=== PATIENT | female | born 1955 | race Caucasian/White ===

== ENCOUNTER 2021-02-16 10:27 | Observation (INO) | payer OTHER ==
[~2021-02-16] VITALS: Ht 162.6 cm; Wt 105.7 kg
[~2021-02-16 10:27] MED LIST: DOXYCYCLINE 10100 MG PO; NOHOMEMEDICATIONS; NORCO 5-325 TA1 EACH PO
[2021-02-16 10:38] VITALS: BP 159/59
[2021-02-16 11:02] LABS: ABSOLUTE EOSINOPHILS 0.1 thou/uL (0.0-0.7); ABSOLUTE LYMPHOCYTES 1.6 thou/uL (0.8-5.3); ABSOLUTE MONOCYTES 0.4 thou/uL (0.0-1.2); ABSOLUTE NEUTROPHILS 3.6 thou/uL (1.6-8.1); BASOPHILS 0.8 %; EOSINOPHILS 1.7 %; HEMATOCRIT 40.6 % (37.0-47.0); HEMOGLOBIN 13.6 gm/dL (12.0-15.0); LYMPHOCYTES 27.6 %; MCH 26.7 pg (26.0-34.0); MCHC 33.6 g/dL (28.0-37.0); MCV 79.6 fL (80.0-100.0); MONOCYTES 7.8 %; NUCLEATED RBCS 0 /100WBC; PLATELET COUNT* 147 thou/uL (150-400); POLYS 62.1 %; RDW-CV 14.3 % (10.5-14.5); WBC 5.7 thou/uL (4.0-11.0)
[2021-02-16 11:11] LABS: CALCIUM 8.8 mg/dL (8.5-10.1); CREATININE 0.8 mg/dL (0.6-1.3); POTASSIUM 4.1 mmol/L (3.5-5.1)
[2021-02-16 11:22] LABS: ALBUMIN 3.9 g/dL (3.4-5.0); MAGNESIUM 1.9 mg/dL (1.8-2.4); TOTAL BILIRUBIN 0.5 mg/dL (<0.1-1.0); TOTAL PROTEIN 7.4 g/dL (6.4-8.2)
[2021-02-16 14:48] VITALS: BP 112/55
--- NOTE | 2021-02-16 18:16 | NUR ---
PT A&OX4 VSS. PT CONTINENT OF B/B. ROOM AIR SATS >95%. UP AD BRITT GAIT STEADY. PT TO HAVE STRESS TEST TOMORROW. SINUS ON MONITOR. PT RESTS IN BED WITH CLL LIGHT IN REACH. WILL CONTINUE TO MONITOR
[2021-02-16 19:30] VITALS: BP 105/53
[2021-02-17 01:00] VITALS: BP 110/47
[2021-02-17 04:00] VITALS: BP 131/67
[2021-02-17 05:25] LABS: HEMOGLOBIN 13.4 gm/dL (12.0-15.0); MCHC 33.5 g/dL (28.0-37.0); MCV 80.6 fL (80.0-100.0); MPV 8.5 fl. (7.2-11.1); RBC 4.96 mil/uL (4.20-5.00); RDW-CV 14.7 % (10.5-14.5); WBC 5.6 thou/uL (4.0-11.0)
[2021-02-17 05:48] LABS: ALBUMIN 3.4 g/dL (3.4-5.0); ALKALINE PHOSPHATASE 67 U/L (46-116); ANION GAP 8 mmol/L (7-16); BUN 11 mg/dL (7-18); CALCIUM 8.3 mg/dL (8.5-10.1); CHLORIDE 107 mmol/L (98-107); CHOLESTEROL 200 mg/dL (<200); CO2 26 mmol/L (21-32); CREATININE 0.7 mg/dL (0.6-1.3); GLUCOSE 113 mg/dL (70-99); HDL CHOLESTEROL 55 mg/dL (>40); LDL CHOLESTEROL 117 mg/dL (<100); MAGNESIUM 1.9 mg/dL (1.8-2.4); POTASSIUM 3.9 mmol/L (3.5-5.1); SGOT 20 U/L (15-37); SGPT 26 U/L (30-65); SODIUM 141 mmol/L (136-145); TC:HDL 3.6 Ratio (Not establshd); TOTAL BILIRUBIN 0.3 mg/dL (<0.1-1.0); TOTAL PROTEIN 6.7 g/dL (6.4-8.2); TRIGLYCERIDE 140 mg/dL (<150); TROPONIN-I LEVEL <0.06 ng/mL (<0.06); VLDL 28 mg/dL (<40)
[2021-02-17 05:49] LABS: SERUM ASSESSMENT Clear
[2021-02-17 08:00] VITALS: BP 126/61
--- NOTE | 2021-02-17 08:10 | 2DMMODE ---
[place] [address] 2 D/M-MODE ECHOCARDIOGRAM Name: CASSI DEXTER Room: [address] [place]#: [id number] Admission: 02/16/21 Attend Phys: Flaquita Carlson, Discharge: Date of : 57 Date of Service: 02/17/21 0810 Report #: [id number] THIS REPORT FOR: cc: Devora Tracey Maggie M. DO Blick, David R. MD [facility] ~ APPROVED REPORT Study performed: 02/16/2021 14:19:45 EXAM: Comprehensive 2D, Doppler, and color-flow Echocardiogram Patient Location: In-Patient Room #: er Status: routine BSA: 2.09 HR: 64 bpm BP: 118/56 mmHg Rhythm: NSR Other Information Study Quality: Adequate Indications Chest Pain 2D Dimensions IVSd: 9.47 (7-11mm) LVOT Diam: 19.80 (18-24mm) LVDd: 43.46 mm PWd: 9.22 (7-11mm) Ascending Ao: 35.46 (22-36mm) LVDs: 24.54 (25-40mm) Aortic Root: 30.37 mm Volumes Left Atrial Volume (Systole) LA ESV Index: 22.70 mL/m2 Aortic Valve AoV Peak Claudy.: 1.30 m/s AO Peak Gr.: 6.71 mmHg LVOT Max P.22 mmHg AO Mean Gr.: 3.46 mmHg LVOT Mean P.03 mmHg LVOT Max V: 1.03 m/s AO V2 VTI: 25.22 cm LVOT Mean V: 0.65 m/s MARIA INES (VTI): 3.12 cm2 LVOT V1 VTI: 25.53 [place] [address] 2 D/M-MODE ECHOCARDIOGRAM Name: CASSI DEXTER Room: [address]R.#: [id number] Admission: 02/16/21 Attend Phys: Flaquita Carlson, Discharge: Date of : 57 Date of Service: 02/17/21 0810 Report #: [id number] Mitral Valve E/A Ratio: 1.16 MV Decel. Time: 215.48 ms MV E Max Claudy.: 0.67 m/s MV PHT: 62.49 ms MVA (PHT): 3.52 cm2 TDI E/Lateral E': 4.79 E/Medial E': 9.57 Medial E' Claudy.: 0.07 m/s Lateral E' Claudy.: 0.14 m/s Pulmonary Valve PV Peak Claudy.: 0.94 m/s PV Peak Gr.: 3.52 mmHg Tricuspid Valve RAP Estimate: 5.00 mmHg TR Peak Gr.: 23.19 mmHg RVSP: 28.00 mmHg PA Pressure: 28.00 mmHg Left Ventricle The left ventricle is normal size. There is normal LV segmental wall motion. There is normal left ventricular wall thickness. Left ventricular systolic function is normal. The left ventricular ejection fraction is within the normal range. LVEF is 55-60%. The left ventricular diastolic function is normal. Right Ventricle The right ventricle is normal size. The right ventricular systolic function is normal. Atria The left atrium size is normal. The right atrium size is normal. Aortic Valve The Aortic valve is sclerotic. No aortic regurgitation is present. There is no aortic valvular stenosis. Mitral Valve The mitral valve is normal in structure. There is no mitral valve regurgitation noted. No evidence of mitral valve stenosis. Tricuspid Valve The tricuspid valve is normal in structure. Trace tricuspid regurgitation. [place] [address] 2 D/M-MODE ECHOCARDIOGRAM Name: CASSI DEXTER Room: [address]#: [id number] Admission: 02/16/21 Attend Phys: Flaquita Carlson, Discharge: Date of : 57 Date of Service: 02/17/21 0810 Report #: [id number] Pulmonic Valve Pulmonic valve is not well visualized. There is no pulmonic valvular regurgitation. Great Vessels The aortic root is normal in size. IVC is normal in size and collapses >50% with inspiration. Pericardium There is no pericardial effusion. <Conclusion> Left ventricular systolic function is normal. The left ventricular ejection fraction is within the normal range. The Aortic valve is sclerotic. <ELECTRONICALLY SIGNED> By: Flex Sotomayor MD, [facility] 02/17/21809 9 9 Flex Sotomayor MD, FACC /INF
[2021-02-17] MEDS ORDERED: ASPIRIN EC81 M1 PO (08:44)
--- NOTE | 2021-02-17 08:57 | EKG ---
[place] [address] ELECTROCARDIOGRAM REPORT Name: CASSI DEXTER [address]#: [id number] Admission: 02/16/21 Attend Phys: Flaquita Carlson, Discharge: Date of : 57 Date of Service: 02/16/21 1041 Report #: [id number] THIS REPORT FOR: //name// [facility] ED Test Date: 2021-02-16 Test Time: 10:41:39 Pat Name: CASSI DEXTER Department: Room: [facility] Gender: F Marketing Operations Analyst: CD : 1955 Requested By: Jorge Belcher Order Number: [id number] MD: Tanvir Franklin Measurements Intervals [place] Rate: 70 P: 30 CO: 177 QRS: -17 QRSD: 102 T: 19 QT: 390 QTc: 421 Interpretive Statements Sinus rhythm Low voltage, precordial leads No previous ECG available for comparison Electronically Signed On 02-17-2021 8:57:09 CDT by Tanvir Franklin [email or web address] <ELECTRONICALLY SIGNED> By: Tanvir Franklin MD, [facility] 02/17/21 0857 1041 1041 Tanvir Franklin MD, [facility] /EPI
--- NOTE | 2021-02-17 10:31 | NUR ---
ASSUMED CARE OF PT AT 0730. PT LYING IN BED. A&0X4, DENIES ANY CHEST PAIN OR SHORTNESS OF BREATH. PT NPO FOR STRESS ECHO TODAY. CARDIOLOGY CONSULT IN PLACE. TRACING SR ON THE FRINGE WEAVER. ON RA SAT UPPER 90'S. PT UP BRITT IN ROOM. PT GOAL FOR TODAY IS COMPLETE STRESS ECHO AND DISCHARGE PLANNING TO HOME. AM ASSESSMENT CHARTED. MEDICATIONS PER MAR. PT REPOSITIONS SELF. HOURLY ROUNDING OBSERVED. BED IN LOW POSITION. CALL LIGHT WITHIN REACH. WILL CONTINUE PLAN OF CARE.
[2021-02-17 11:17] VITALS: BP 126/61
--- NOTE | 2021-02-17 11:30 | CON ---
[address] [address] CONSULTATION Name: CASSI DEXTER Room: [address] [place]#: [id number] Admission: 02/16/21 Attend Phys: Flaquita Carlson MD Discharge: Date of : 57 Report #: [id number] THIS REPORT FOR: cc: Devora Tracey Maggie M. DO Blick, David R. MD [facility] ~ DOC #: [id number] cc: DO Flex Schwarz MD [facility] DATE OF CONSULTATION: 02/16/2021 HISTORY OF PRESENT ILLNESS: The patient is a 65-year-old single white female who I was asked to see in the Emergency Room today after she complained of her ankles have been swollen. The patient has no previous history of heart disease. For several weeks now, she has noticed intermittent swelling of both feet that occasionally will go down. She has never been on diuretics before. She also notes when she exerts herself, she developed some tightness of her chest that goes into her back. It is not related to food or coughing. She has had no blood in her stool. Denied trauma to her chest. She also notes when she exerts herself, she will become short of breath. However, she denies any fever or cough. She went to see her primary care physician today was sent to the Emergency Room for further evaluation and treatment. PAST MEDICAL HISTORY: Significant for oral surgery. She has no history of hypertension, diabetes, hyperlipidemia. MEDICATIONS: She is on no medication. ALLERGIES: TO PENICILLIN. FAMILY HISTORY: Grandfather had a pacemaker. SOCIAL HISTORY: She is , lives by herself in a farm outside [place], [place]. She is retired from the [employer]. No smoking. Rarely drinks alcohol. REVIEW OF SYSTEMS: She is overweight being 5 feet 4 inches, 230 pounds. No history of stroke. She denies snoring at night. No asthma. No liver disease. No kidney disease. She has had hemorrhoids in the past. No GI bleeding. No chronic skin condition. No psychiatric illness. PHYSICAL EXAMINATION: GENERAL: Middle-aged female, appeared in no distress. VITAL SIGNS: She had a blood pressure 120/70, pulse 70. She is afebrile. HEENT: She was anicteric. Conjunctivae pink[place] [address] CONSULTATION Name: CASSI DEXTER [address] [id number] Admission: 02/16/21 Attend Phys: Flaquita Carlson MD Discharge: Date of : 57 Report #: [id number] NECK: Veins not distended. No carotid bruits. Supple. CHEST: Clear to auscultation. HEART: Regular rate and rhythm without murmur. ABDOMEN: Soft. EXTREMITIES: Had no pitting edema. Dorsalis pedis pulse, 2+ bilaterally. SKIN: Cool and dry. NEUROLOGIC: Nonfocal. LYMPHATIC: No adenopathy. MUSCULOSKELETAL: No effusion. PSYCHIATRIC: Mood is appropriate. LABORATORY DATA: Her workup in the Emergency Room, she actually had a chest x-ray this morning that showed a sinus rhythm with no significant ST or T-wave change. The patient had a portable chest x-ray in the Emergency Room today that showed normal heart size, clear lung rutledge. Her sodium is 139, creatinine 0.8. Liver function studies were normal. Troponins were all less than 0.06. TSH 2.2. White blood cell count 5.7, hematocrit 40.6. Her COVID antigen stat test was negative. IMPRESSION AND RECOMMENDATIONS: 1. Chest pressure. Atypical for angina. Recommend stress echocardiogram. 2. Lower extremity edema. Suspect venous insufficiency. Recommend sodium restriction, elevation of feet and support hose. 3. Dyspnea on exertion, suspect secondary exercise tolerance. 4. Obesity. Recommend diet and exercise. Flex Sotomayor MD [facility] MESSI/[facility] <ELECTRONICALLY SIGNED> By: Flex Sotomayor MD, [facility] 02/17/21 1130 1353 0025Daviroscoe Sotomayor MD, [facility] /nt
[2021-02-17 12:01] VITALS: BP 124/63
--- NOTE | 2021-02-17 14:44 | EXE ---
[place] [address] STRESS ECHOCARDIOGRAM Name: CASSI DEXTER Room: [address] [place]#: [id number] Admission: 02/16/21 Attend Phys: Flaquita Carlson, Discharge: Date of : 57 Date of Service: 02/17/21 1444 Report #: [id number] THIS REPORT FOR: cc: Devora Tracey Maggie M. DO Liston, Michael J. MD [facility] ~ APPROVED REPORT Study performed: 02/17/2021 13:04:46 Exam: Stress Echocardiogram Indication: Chest pain Patient Location: In-Patient Stress Nurse: Isabel Bar RN Room #: 210 Supervising Physician: Tanvir Franklin MD Ht: 5 ft 4 in HR: 76 bpm BP: 115/79 mmHg Medical History Cardiac Risk Factors: Age Procedure The patient underwent an Exercise Stress Test using the Fernandez Protocol. Blood pressure, heart rate, and EKG were monitored. An Echocardiogram was performed by energy and conservation technician in four stages in quad fashion. At peak stress, four selected images were obtained and placed side by side with resting images for comparison. Echo Enhancing Agent Indication: Endocardial border delineation Agent(s) / Amount(s) Used: Optison 4 cc Stress Test Details Stress Test: Exercise stress testing was performed using a Fernandez protocol. HR Resting HR: 76 bpm Max Heart Rate (APMHR): 156 bpm Max HR Achieved: 150 bpm Target HR (85% APMHR): 132 bpm % of APMHR: 96 Recovery HR: 88 bpm HR response to stress: [place] [address] STRESS ECHOCARDIOGRAM Name: GUERITACASSI Ravinder Room: [address]#: [id number] Admission: 02/16/21 Attend Phys: Flaquita Carlson, Discharge: Date of : 57 Date of Service: 02/17/21 1444 Report #: [id number] Resting BP: 115/79 mmHg Max BP: 197/59 mmHg Recovery BP: 127/58 mmHg BP response to stress: Normal blood pressure response to stress. ECG Resting ECG: Sinus Rhythm Stress ECG: Sinus Tachycardia ST Change: None Arrhythmia: None Recovery ECG: Sinus Rhythm Recovery ST Change: None Recovery Arrhythmia: None Clinical Reason for Termination: Completed protocol Exercise duration: 6 min sec Highest Stage Achieved: Stage 2: 2.5 mph at 12% grade. Exercise capacity: 7.05 METs The patient tolerated standard Fernandez protocol exercise without significant cardiac symptoms. Exercise was stopped due to attainment of target heart rate. Stress ECG Conclusion The baseline twelve-lead EKG shows sinus rhythm without significant ST segment or T wave abnormality. EKGs obtained during and post exercise show sinus rhythm and sinus tachycardia with no significant ST segment or T wave changes when compared to baseline. There were no stress-induced arrhythmias. Pre-Stress Echo The resting Echocardiogram showed normal left ventricular contractility with an estimated Ejection Fraction of about 55-60%. The resting echocardiogram demonstrated normal wall motion in all wall segments. Post-Stress Echo The stress Echocardiogram showed normal left ventricular contractility with an estimated Ejection Fraction of about >70%. Compared to rest, there were no stress-induced wall motion abnormalities. Clinical No clinical [place] [address] STRESS ECHOCARDIOGRAM Name: CASSI DEXTER Room: [address]#: [id number] Admission: 02/16/21 Attend Phys: Flaquita Carlson, Discharge: Date of : 57 Date of Service: 02/17/21 1444 Report #: [id number] Conclusion Clinical Response: Non-ischemic Exercise Capacity: Average Stress ECG Response: Non-ischemic Stress Echo Images: Non-ischemic Other Information Study Quality: Good <ELECTRONICALLY SIGNED> By: Tanvir Franklin MD, [facility] 02/17/21 1444 1444 1444 Tanvir Franklin MD, FACC /INF
[2021-02-17 14:55] VITALS: BP 126/61
--- NOTE | 2021-02-17 15:21 | NUR ---
PT HAD STRESS ECHO-RESULTS NORMAL. OK FOR DISCHARGE. DISCHARGE ORDERS RECEIVED. DISCHARGE INSTRUCTIONS, CARE NOTES, SCRIPTS AND FOLLOW UP APPTS GIVEN TO PT. PT COMMUNICATES UNDERSTANDING OF DISCHARGE TEACHING. IV AND COMBATANT DIVER QUALIFIED REMOVED. PT DISCHARGED WITH ALL BELONGINGS AND PAPERWORK VIA WHEELCHAIR WITH NURSING STAFF TO OWN PERSONAL VEHICLE.
== END 2021-02-17 15:22 | disposition home or self-care (01) ==
LOC: M.ERS 10:27 → M.TBA-ER 12:30 → M.2W 15:05
PROVIDERS: Emergency Medicine Emergency Medical Services; ADMIT Internal Medicine; ATTEND Internal Medicine
DX: R07.89 Other chest pain (principal); Z20.822 Contact with and (suspected) exposure to COVID-19; E66.9 Obesity, unspecified; D69.6 Thrombocytopenia, unspecified; R60.9 Edema, unspecified; Z79.899 Other long term (current) drug therapy; Z68.41 Body mass index [BMI] 40.0-44.9, adult